=== PATIENT | male | born 1955 | race Caucasian/White ===

== ENCOUNTER 2018-12-17 10:59 | Emergency (ER) | payer SELFPAY ==
[~2018-12-17] VITALS: Ht 182.9 cm; Wt 115.0 kg
[2018-12-17 11:10] VITALS: BP 138/84
== END 2018-12-17 11:47 | disposition left against medical advice (07) ==
LOC: ER 10:59
DX: Z53.21 Procedure and treatment not carried out due to patient leaving prior to being seen by health care provider (principal)